=== PATIENT | female | born 1970 | race Caucasian/White ===

== ENCOUNTER → 2017-02-07 | Outpatient (CLI) | payer OTHER ==
[2017-02-07 12:12] LABS: CH 30.4; CHCM 32.4; HCT 43.4 % (34.0-46.0); HDW 2.15; HGB 14.3 gm/dL (11.4-16.0); MCHC 32.9 g/dL (31.0-37.0); MCV 94.3 fL (80.0-100.0); Mean Platelet Volume 7.6; RDW 12.2 % (11.5-15.5); WBC 5.3 k/uL (3.8-10.6)
[2017-02-07 12:48] LABS: Anion Gap 9 mmol/L; Blood Urea Nitrogen 12 mg/dL (7-17); Calcium 9.7 mg/dL (8.4-10.2); Carbon Dioxide 28 mmol/L (22-30); Chloride 103 mmol/L (98-107); Glucose 93 mg/dL (74-99); Non-African American GFR(MDRD) >60 (>60 ml/min/1.73 sqM); Potassium 4.3 mmol/L (3.5-5.1); Sodium 140 mmol/L (137-145)
== END ==
LOC: LABWHC1 11:33
PROVIDERS: ATTEND Internal Medicine Clinical Cardiac Electrophysiology
DX: I47.1 Supraventricular tachycardia (principal)
CPT/HCPCS: 36415; 80048; 85027

== ENCOUNTER 2017-02-08 05:58 | Day surgery (SDC) | payer OTHER ==
[2017-02-06 18:21] VITALS: BMI 20.7
[2017-02-08] MEDS: SODIUM CHLORIDE 0.9% 1,000 ML IV SCH (06:46)
[2017-02-08 06:58] LABS: Anion Gap 8 mmol/L; Blood Urea Nitrogen 12 mg/dL (7-17); Calcium 9.5 mg/dL (8.4-10.2); Carbon Dioxide 25 mmol/L (22-30); Chloride 107 mmol/L (98-107); Glucose 90 mg/dL (74-99); Non-African American GFR(MDRD) >60 (>60 ml/min/1.73 sqM); Potassium 3.9 mmol/L (3.5-5.1); Sodium 140 mmol/L (137-145)
[2017-02-08] MEDS ORDERED: ISOPROTERENOL 250 MCG/1.25 ML SYR IV ONE (08:00)
[2017-02-08] MEDS ORDERED: fentaNYL (PF) 50 MCG/ML 2 ML AMP ONE (08:00)
[2017-02-08] MEDS ORDERED: PROPOFOL 10 MG/ML 20 ML VIAL IV ONE (08:00)
[2017-02-08] MEDS ORDERED: MIDAZOLAM 2 MG/2 ML VIAL ONE (08:00)
[2017-02-08] MEDS ORDERED: LIDOCAINE 2% INJ 20 MG/ML SQ ONE ×2 (08:10→08:20)
[2017-02-08] MEDS ORDERED: IV FLUID CONTINUATION 1,000 ML IV ONE (10:00)
[2017-02-08] MEDS ORDERED: HYDROcodone/APAP 5-325MG 1 EACH TAB PO PRN (11:04)
[2017-02-08] MEDS ORDERED: ACETAMINOPHEN TAB 325 MG TAB PO PRN (11:04)
--- NOTE | 2017-02-08 11:09 | P.PCN ---
Preoperative Diagnosis: Procedures performed Comprehensive diagnostic EP study with arrhythmia induction Coronary sinus pacing and recording Programmed stimulation following Isuprel 3-D mapping and SVT ablation, SVT 1, AV amauri reentry Successful RF anterior to the coronary sinus os, outside the coronary sinus os, with junctional rhythm during RF Tachycardia rendered noninducible Testing thereafter on Isuprel with straight pacing in the high right atrium at a pacing cycle length 300 ms induced at 221 atrial tachycardia negative P waves in the inferior leads 3-D mapping revealed a focal atrial tachycardia within the coronary sinus about a centimeter into the coronary sinus, distinct and separate from the first tachycardia Successful 3-D mapping of the atrial tachycardia, focal Successful RF ablation at that site of earliest activation within the coronary sinus
[2017-02-08] MEDS ORDERED: ACETAMINOPHEN IV (For NPO) 1,000 MG in EMPTY BAG 1 BAG IVPB ONE (12:15)
--- NOTE | 2017-02-08 12:54 | CE ---
DATE OF SERVICE: Naomie Kennedy is a 46-year-old female who has recurrent supraventricular tachycardia and was initially responsive to the Valsalva maneuver, but is no longer so and she is quite symptomatic so she was brought in for a diagnostic EP study and SVT ablation. She has documented SVT in the past. Patient was brought to the EP lab in a fasting state. Written informed consent was obtained prior to the procedure. The left shoulder area was prepped and draped as per protocol. Venous sheath was placed in the left axillary vein and via this, a decapolar catheter was positioned in the coronary sinus for coronary sinus pacing and recording. Three venous sheaths were placed in the right femoral vein and via these, 3 diagnostic catheters were positioned in the right heart (high right atrial catheter, HIS bundle catheter and RV catheter). BASELINE MEASUREMENTS: Sinus cycle length of 741 ms, AL interval 133 ms, QRS 118 ms, QT 399 ms. AH interval 78 ms, HV interval 35 ms. Sinus node recovery times at 600 and 500 ms ( ) 933 ms corresponding corrected sinus node recovery times were within normal limits. There was no evidence for delta waves with atrial pacing. A straight pacing from the high right atrium resulted in jump at 380 ms. VA Wenckebach block 480 ms concentric retrograde conduction. Atrial extrastimulation resulted in echo ventricular extrastimulation was also performed. Ventricular ERP 600& a retrograde slow pathway conduction also. Isuprel was then started on a straight pacing, SVT was induced with onset with a jump in the AH interval and SVT cycle length 290 ms. Septal time is less than 60 ms, long post pacing interval and the post pacing interval minus tachycardia cycle length of 150 ms. Parahisian pacing revealed a amauri response. Ventricular extrastimulation was performed. Although atypical echo beats were noted, atypical AV amauri re-entry was not induced. No other tachycardias were induced. A long sheath was then placed and a 4 mm tip RF ablation catheter was used. Three-D mapping was performed. The HIS cloud was tagged. The coronary sinus os as tagged and its ( ) roof. RF ablation was performed anterior to the coronary sinus outside it by about a centimeter and good power was achieved . Junctional rhythm was noted with several RF lesions. RF ablation also at the coronary sinus and anterior to it resulted elimination of AV amauri re-entry. Following that, Isuprel was started once a day. Straight pacing was performed and there was no evidence for SVT anymore. There was no evidence of slow pathway conduction with straight pacing either. However, a second tachycardia was induced on high-dose Isuprel with straight pacing from the coronary sinus. This tachycardia had a cycle length of about 200 ms. The earliest activation was noted to be within the coronary sinus about a centimeter into it. Repeat 3-D mapping was performed for the focal atrial tachycardia, which had negative P waves in the inferior leads and biphasic P waves in V1 (negative followed by positive). The tachycardia was mapped to the coronary sinus and mechanical termination occurred in that region, but we obtained the earliest activation site and when RF ablation was applied here a burst of atrial tachycardia was induced followed by termination. RF ablations were applied around the sites of earliest activation and successful ablation was performed within the coronary sinus for this focal atrial tachycardia. Thereafter, high dose Isuprel was once again used. Straight pacing was performed and no other tachycardia was induced. All catheters were removed and patient was transferred back to telemetry after assuring hemostasis. RESULT: Diagnostic EP study revealin. Typical. AV amauri re-entrant tachycardia. Three-D mapping and SVT ablation was performed for AV amauri re-entry. 2. Second focal atrial tachycardia from within the coronary sinus about a centimeter into it was induced with straight pacing. Successful 3-D mapping and RF ablation was performed for this focal atrial tachycardia. The patient was rendered noninducible. PLAN: Discontinue diltiazem and follow clinically as an outpatient.
[2017-02-08] MEDS: LACTATED RINGERS 1,000 ML IV SCH (17:33)
[2017-02-09] MEDS: SODIUM CHLORIDE 0.9% 1,000 ML IV SCH (07:33)
[2017-02-09] MEDS: LACTATED RINGERS 1,000 ML IV SCH (07:33)
[2017-02-09] MEDS ORDERED: ONDANSETRON 4 MG/2 ML VIAL IVP PRN (07:47)
--- NOTE | 2017-02-09 07:56 | P.DS ---
Providers Attending physician: Jagdeep Schwartz Primary care physician: Adia Harrison [facility] Course: Patient is lying comfortably in bed. She denies any chest discomfort dizziness or lightheadedness but this morning she was nauseous Over in the supine position her blood pressure systolic is 87/53 mmHg she feels nauseous but she is not throwing up she actually looks comfortable No JVD normal heart sounds no rub no gallop, normal breath sounds no rhonchi no crackles abdomen is soft access sites in the groin in the subclavian area have healed well no hematoma Impression Supraventricular tachycardia, AV amauri reentry status post successful mapping and ablation Coronary sinus atrial tachycardia, focal atrial tachycardia status post successful mapping and ablation Plan Stop Cardizem/verapamil 1 L of IV fluids to normal saline Ambulate in the hallways Twelve-lead ECG today Limited 2-D echo and Doppler to look at the pericardium If her blood pressure normalizes and her nausea improves and she is ablating comfortably and her EKG and echo within normal limits she should be ordered to go home in about 4-6 hours as long as she is stable We'll see her in the office next Sunday Plan - Discharge Summary Discharge Medication List Diltiazem HCl 60 mg PO TID PRN 02/06/17 [History] Ibuprofen [Motrin] 200 - 400 mg PO Q6HR PRN 02/06/17 [History] Pseudoephedrine HCl [Sudafed] 60 mg PO Q6HR PRN 02/06/17 [History]
[2017-02-09] MEDS ORDERED: SODIUM CHLORIDE 0.9% 1,000 ML IV ONE (08:00)
--- NOTE | 2017-02-09 11:19 | ECHOF ---
Referral Reason:rule out pericardial effusion MEASUREMENTS -------- HEIGHT: 165.1 cm WEIGHT: 56.2 kg BP: 102/54 RVIDd: 2.4 cm (< 3.3) IVSd: 0.7 cm (0.6 - 1.1) LVIDd: 4.0 cm (3.9 - 5.3) LVPWd: 0.7 cm (0.6 - 1.1) IVSs: 1.2 cm LVIDs: 2.7 cm LVPWs: 1.1 cm LA Diam: 1.6 cm (2.7 - 3.8) LAESV Index (A-L): 12.18 ml/m Ao Diam: 2.7 cm (2.0 - 3.7) AV Cusp: 1.6 cm (1.5 - 2.6) LA Diam: 1.5 cm (2.7 - 3.8) MV EXCURSION: 15.510 mm (> 18.000) MV EF SLOPE: 118 mm/s (70 - 150) EPSS: 0.2 cm MV E Charly: 0.82 m/s MV DecT: 228 ms MV A Charly: 0.69 m/s MV E/A Ratio: 1.19 RAP: 5.00 mmHg FINDINGS -------- Sinus rhythm. This was a technically good study. Left ventricular wall thickness is normal. Overall left ventricular systolic function is normal with, an EF between 55 - 60 %. The right ventricle is normal in size. Normal LA size by volume 22+/-6 ml/m2. The right atrium is normal in size. The aortic valve is trileaflet and appears structurally normal. Mild mitral annular calcification present. Trace tricuspid regurgitation present. Right ventricular systolic pressure is normal at < 35 mmHg. Pulmonic valve appears structurally normal. The aortic root size is normal. The inferior vena cava is mildly dilated. There is a small, generalized pericardial effusion present. CONCLUSIONS -------- 1. Sinus rhythm. 2. Trace tricuspid regurgitation present. 3. Right ventricular systolic pressure is normal at < 35 mmHg. 4. Pulmonic valve appears structurally normal. 5. The aortic root size is normal. 6. The inferior vena cava is mildly dilated. 7. There is a small, generalized pericardial effusion present. 8. This was a technically good study. 9. Left ventricular wall thickness is normal. 10. Overall left ventricular systolic function is normal with, an EF between 55 - 60 %. 11. The right ventricle is normal in size. 12. Normal LA size by volume 22+/-6 ml/m2. 13. The right atrium is normal in size. 14. The aortic valve is trileaflet and appears structurally normal. 15. Mild mitral annular calcification present. PACKAGING MECHANIC: Broderick Castellanos RDCS
[2017-02-09 13:31] VITALS: BP 89/54; PULSE 87; RESP 16; TEMP 97.6
== END 2017-02-09 13:00 | disposition home or self-care (01) ==
LOC: CATHEP 05:58 → 3OBS 12:39 → CATHEP 02-09 13:00
PROVIDERS: ATTEND Internal Medicine Clinical Cardiac Electrophysiology
DX: I47.1 Supraventricular tachycardia (principal); I31.3 Pericardial effusion (noninflammatory); I08.1 Rheumatic disorders of both mitral and tricuspid valves; Z79.899 Other long term (current) drug therapy
CPT/HCPCS: 93306; 93623; 93613; 93653; 93655; 80048; C1894 ×2; C1769 ×2; C1730 ×3; C1893; C1732; J2001; J2250; J2405; J3010; J2704